=== PATIENT | female | born 1960 ===

== ENCOUNTER 2021-07-08 10:45 | Inpatient (IN) | payer OTHER ==
[~2021-07-08] VITALS: Ht 162.6 cm; Wt 64.4 kg
[~2021-07-08 10:45] MED LIST: BENADRYL50 MG PO; TRAMADOL HCL50 MG PO
[2021-07-08] MEDS ORDERED: ATORVASTATIN CA10 MG PO (16:51)
[2021-07-08] MEDS ORDERED: GLUMETZA500 MG PO (16:51)
[2021-07-08] MEDS ORDERED: ALTACE10 MG PO (16:52)
[2021-07-16] MEDS ORDERED: PERCOCET 5-3251 EACH PO (06:23)
== END 2021-07-16 09:21 | disposition home or self-care (01) | DRG 330 ==
LOC: O/R 07-12 06:50 → SURH 07-12 10:45
PROVIDERS: ADMIT Surgery; ATTEND Surgery
PROC: 0DTN4ZZ Resection of Sigmoid Colon, Percutaneous Endoscopic Approach (ICD-10-PCS; 2021-07-12)
PROC: 07TD4ZZ Resection of Aortic Lymphatic, Percutaneous Endoscopic Approach (ICD-10-PCS; 2021-07-12)
PROC: 3E0F7SF Introduction of Other Gas into Respiratory Tract, Via Natural or Artificial Opening (ICD-10-PCS; 2021-07-12)
PROC: 0DTP4ZZ Resection of Rectum, Percutaneous Endoscopic Approach (ICD-10-PCS; principal; 2021-07-12 12:45)
DX: C18.2 Malignant neoplasm of ascending colon (principal); K62.5 Hemorrhage of anus and rectum; Z20.822 Contact with and (suspected) exposure to COVID-19

== ENCOUNTER 2021-07-10 07:05 | Day surgery (SDC) | payer OTHER ==
[~2021-07-10 07:05] MED LIST changes: +ALTACE10 MG PO; +ATORVASTATIN CA10 MG PO; +GLUMETZA500 MG PO
== END 2021-07-10 13:10 | disposition home or self-care (01) ==
LOC: AMB-ENDOS 07:05
PROVIDERS: ATTEND Surgery
DX: C18.2 Malignant neoplasm of ascending colon (principal); K62.1 Rectal polyp

== ENCOUNTER 2022-03-20 11:33 | Outpatient (CLI) | payer OTHER ==
[~2022-03-20 11:33] MED LIST changes: +PERCOCET 5-3251 EACH PO
== END 2022-03-20 11:35 | disposition home or self-care (01) ==
LOC: MAMO-SONO 11:33
PROVIDERS: ATTEND Obstetrics & Gynecology
DX: N63.22 Unspecified lump in the left breast, upper inner quadrant (principal); N63.21 Unspecified lump in the left breast, upper outer quadrant

== ENCOUNTER 2025-01-09 06:03 | Day surgery (SDC) | payer OTHER ==
[2025-01-02 08:46] VITALS: BP 150/89
[2025-01-02 09:05] LABS: URINE APPEARANCE Clear; URINE BILIRRUBIN Negative (NEGATIVE); URINE BLOOD Negative; URINE COLOR Yellow; URINE GLUCOSE Negative (NEGATIVE); URINE KETONE Negative (NEGATIVE); URINE LEUKOCYTE Small; URINE NITRATE Negative; URINE PROTEIN Negative (NEGATIVE); URINE UROBILINOGEN 0.2 E.U./dl
[2025-01-02 09:10] LABS: HEMATOCRIT 37.3 % (36.0-45.00); HEMOGLOBIN 12.9 g/dL (12.0-15.00); MEAN CELL VOLUME 89.7 fL (80.00-100.00); MEAN CORPUSCULAR HEMOGLOBIN 30.9 pg (27.00-32.0); MEAN CORPUSCULAR HGB CONC 34.5 g/dl (32.0-36.0); PLATELET COUNT 226 K/uL (150-450); RED BLOOD COUNT 4.16 M/uL (4.00-6.00); RED CELL DISTRIBUTION WIDTH 13.6 % (11.5-14.5)
[2025-01-02 09:10] LABS: URINE BACTERIA 57.5 uL (0.0-1933); URINE EPITHELIAL CELLS 8.5 uL (0.0-38.8); URINE WBC 10.7 uL (0.0-23.2)
[2025-01-02 09:11] LABS: URINE RBC 1.7 uL (0.0-20.8)
[2025-01-02 09:49] LABS: INR 1.01; PARTIAL THROMBOPLASTIN TIME 25.9 SECONDS (22.0-34.0)
[2025-01-02 09:52] LABS: ALBUMIN 3.6 gm/dL (3.4-5.0); BILIRUBIN TOTAL 0.5 mg/dL (0.3-1.2); CALCIUM 9.5 mg/dL (8.5-10.1); CREATININE SERUM 0.57 mg/dL (0.55-1.02); GFR 106.78; GLOBULINA 3.8 G/DL (2.4-3.5); POTASSIUM 4.26 mEq/L (3.5-5.1); TOTAL PROTEIN 7.4 gm/dL (6.4-8.2)
[~2025-01-09] VITALS: Ht 162.6 cm; Wt 65.8 kg
[~2025-01-09 06:03] MED LIST changes: +TOPROL XL25 M1 PO
[2025-01-09] MEDS ORDERED: POVIDONE-IODINE 118 ML BOTT TOP ONE (07:05)
[2025-01-09] MEDS ORDERED: IBU800 MG PO (09:32)
[2025-01-09] MEDS ORDERED: NEURONTIN300 MG PO (09:32)
[2025-01-09] MEDS ORDERED: MORPHINE SULFATE 4 MG/ML VIAL IV ONE ×2 (10:55→11:25)
== END 2025-01-09 12:15 | disposition home or self-care (01) ==
LOC: CIR.AMB 06:03
PROVIDERS: ATTEND Obstetrics & Gynecology Gynecology
DX: D27.0 Benign neoplasm of right ovary (principal); D28.2 Benign neoplasm of uterine tubes and ligaments